=== PATIENT | female | born 1975 | race Caucasian/White ===

== ENCOUNTER 2018-10-29 06:34 | Emergency (ER) | payer BC ==
--- NOTE | 2018-10-29 07:33 | EDM.PDOC ---
ED HPI GENERAL MEDICAL PROBLEM - General Chief Complaint: Upper Extremity Injury/Pain Stated Complaint: RIGHT SHOULDER PAIN Time Seen by Provider: 10/29/18 07:10 Source of Information: Reports: Patient History Limitations: Reports: No Limitations - History of Present Illness INITIAL COMMENTS - FREE TEXT/NARRATIVE: 42-year-old female with chronic right shoulder pain since shoulder surgery months ago. She is being followed by orthopedics and Dr. Elder has been consult that in his rechecking her with her past medical records on the of this month. Her pain is persistent, not responding to anti-inflammatories and she's wondering if anything else can be done if she's having problems sleeping and unable to work. No fevers or chills. She is losing her ability to completely extend her right elbow, but does not complain of any paresthesias of the lower arm wrist or hand. 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 Musculoskeletal History: Reports: Arthritis, Back Pain, Chronic, Other (See Below) Other Musculoskeletal History: right hip Endocrine/Metabolic History: Reports: Obesity/BMI 30+ - Infectious Disease History Infectious Disease History: Reports: Chicken Pox - Past Surgical History Head Surgeries/Procedures: Reports: None HEENT Surgical History: Reports: None Endocrine Surgical History: Reports: None Musculoskeletal Surgical History: Reports: Shoulder Surgery Other Musculoskeletal Surgeries/Procedures:: Bone spur removal04/20/2018, has small tear Dermatological Surgical History: Reports: None Social & Family History - Family History Family Medical History: Noncontributory - Tobacco Use Smoking Status *Q: Current Every Day Smoker Years of Tobacco use: 10 Packs/Tins Daily: 0.5 Used Tobacco, but Quit: No - Caffeine Use Caffeine Use: Reports: Soda - Recreational Drug Use Recreational Drug Use: No Review of Systems - Review of Systems Review Of Systems: See Below Constitutional: Denies: Fever Respiratory: Reports: No Symptoms Cardiovascular: Reports: No Symptoms GI/Abdominal: Reports: No Symptoms Skin: Denies: Rash Neurological: Denies: Paresthesia ED EXAM, GENERAL - Physical Exam Exam: See Below Exam Limited By: No Limitations General Appearance: Alert, No Apparent Distress, Other (Fairly comfortable with her arm lying still) Respiratory/Chest: No Respiratory Distress Extremities: Other (She is tender over the before meals joint of the right shoulder. She is able to actively place her hand behind her head although it is uncomfortable. There is also pain with passive abduction.) Skin Exam: Warm, Dry Course - Vital Signs Last Recorded V/S: Last Vital Signs Temp 95.6 F 10/29/18 06:44 Pulse 88 10/29/18 06:44 Resp 16 10/29/18 06:44 BP 134/87 10/29/18 06:44 Pulse Ox 99 10/29/18 06:44 - Re-Assessments/Exams Free Text/Narrative Re-Assessment/Exam: 10/29/18 07:59 We discussed possible acute treatment such as steroid injection but I would rather have this done by orthopedics since her appointment is coming up so soon. I do not want to limit his ability to provide therapeutic care. I gave her a work note to be off until her orthopedic appointment, she'll stop the ibuprofen and we will try 1 dose of ketorolac every 8 hours for the next 5 days. I also gave her 20 hydrocodone for extra pain control. She'll intermittently sling her arm for comfort. Departure - Departure Time of Disposition: 07:50 Disposition: Home, Self-Care 01 Clinical Impression: Chronic right shoulder pain - Discharge Information Instructions: Shoulder Pain Referrals: Beth Asencio MD [Primary Care Provider] - Forms: ED Department Discharge Care Plan Goals: Sling on for comfort intermittently, use Toradol 3 times a day until gone and add hydrocodone as needed for extra pain control. Recheck with Dr. Elder as scheduled.
== END 2018-10-29 07:45 | disposition home or self-care (01) ==
LOC: JP.ED 06:34
DX: G89.29 Other chronic pain (principal); M25.511 Pain in right shoulder; E66.9 Obesity, unspecified; Z68.33 Body mass index [BMI] 33.0-33.9, adult; F17.210 Nicotine dependence, cigarettes, uncomplicated
CPT/HCPCS: 99283

== ENCOUNTER 2018-12-07 11:26 | Day surgery (SDC) | payer BC ==
[~2018-12-07 11:26] MED LIST: Bupivacaine 0.5% 30 ML SDV ONE; Dexamethasone 4 MG/ML SDV ONE; Glycopyrrolate 0.2 MG/ML 5 ML MDV ONE; Neostigmine Methylsulfate 1 MG/ML 5 ML Syringe ONE; Ondansetron 4 MG/2 ML SDV ONE; Propofol 200 MG/20 ML SDV ONE; Rocuronium 50 MG/5 ML Vial ONE; Succinylcholine 200 MG/10 ML MDV ONE; fentaNYL 250 MCG/5 ML SDV ONE
[2018-12-07] MEDS ORDERED: Bupivacaine 0.5% 50 ML MDV ONE (11:58)
[2018-12-07] MEDS ORDERED: Nozin Nasal Sanitizer NASBOTH ONE (12:00)
[2018-12-07] MEDS ORDERED: ceFAZolin 2 GM in Sodium Chloride 0.9% 50 ML IV ONE (12:00)
[2018-12-07] MEDS ORDERED: Lactated Ringers 1,000 ML IV SCH (12:30)
[2018-12-07] MEDS ORDERED: Lactated Ringers 1,000 ML ONE (13:46)
[2018-12-07] MEDS ORDERED: fentaNYL 100 MCG/2 ML SDV IVPUSH ONE (15:24)
[2018-12-07] MEDS ORDERED: Acetaminophen/oxyCODONE 325-5 MG Tab PO PRN (15:59)
--- NOTE | 2018-12-11 15:26 | OR ---
DATE OF PROCEDURE: 12/07/2018 SURGEON: Hakan Elder MD PREOPERATIVE DIAGNOSES: 1. Arthrofibrosis, right elbow, with flexion contracture. 2. Capsular contraction, right shoulder. 3. Impingement, right shoulder. POSTOPERATIVE DIAGNOSES: 1. Arthrofibrosis with capsular contraction, right elbow. 2. Impingement, right shoulder. 3. Mild capsular contraction, anterior aspect, right shoulder. PROCEDURE: 1. Arthroscopy, right elbow with release of anterior capsule and manipulation under anesthesia. 2. Arthroscopy, right shoulder with release of anterior capsule and subacromial decompression and modification of acromioplasty. ANESTHESIA: Interscalene block with sedation. INDICATIONS: Kassi is a 43-year-old female with a history of persistent right shoulder and elbow problems. She had undergone a previous arthroscopic procedure and during rehab had persistent pain, difficulty with the shoulder, and developed a flexion contracture of the elbow. She has made some improvements with the flexion contracture with therapy, but still lacks full extension and has persistent elbow pain. She also has persistent difficulty with range of motion of the right shoulder, painful clicking, and decreased strength with overhead activities. She now presents for arthroscopic capsular release and manipulation of the elbow, evaluation of the right shoulder with probable capsular release and manipulation, and evaluation of the rotator cuff of a previous partial-thickness tear. Risks, benefits, and potential complications of the procedure were discussed. DESCRIPTION OF PROCEDURE: After adequate anesthesia was obtained, the patient was placed in the lateral decubitus position and secured with a beanbag positioner. Right shoulder and arm were prepped and draped in a sterile fashion. The right arm was placed over an arm ruvalcaba in a flexed position. The capsule was injected with 15 mL of saline to distend the capsule. An anterior lateral portal was then established. The scope was introduced. An anterior medial portal was then established under direct visualization in the joint avoiding the ulnar nerve. No significant synovitis was present within the joint. Mild capsular contraction was noted. Articular surfaces of the distal humerus, trochlea, coronoid process, and radial head were intact. Using a radiofrequency ablation wand, working initially from the medial portal, the capsule was released from the surface of the humerus. This was taken over to the extent of visualization. A switching stick was then used to move the camera to the medial portal and release was continued laterally. No loose bodies or other abnormalities were identified. The scope was then withdrawn and the arm was brought out into extension. Very light pressure was needed to manipulate the joint into full extension and under anesthesia with moderate pressure, slight hyperextension could be obtained matching her other side. Decision was made not to proceed with arthroscopy of the posterior joint as no pathology was anticipated in this position. Port sites were then closed with 3-0 Monocryl and Steri-Strips were applied. Attention was then turned to the shoulder. Ten pounds of traction was placed through the shoulder in the traction unit. Using a previous incision, a posterior portal was established. Glenohumeral joint was inspected. This revealed some moderate capsulitis. The labrum was intact. No evidence of SLAP tear. Articular cartilage was intact in the glenoid and humerus. Biceps tendon showed no evidence of pathology within the joint. Anterior portal was established and the biceps was pulled down into the joint evaluating the portion of the biceps entering the bicipital groove, which was intact with no evidence of tendinopathy or tear. Subscapularis was intact with no evidence of significant pathology. The undersurface of the rotator cuff was evaluated. An area of mild irregularity and scarring was noted. The anterior edge of the supraspinous corresponding to area of a previous partial thickness tear noted. Some minor debridement was done with a shaver along this area further evaluating the cuff with no evidence of significant full-thickness or partial-thickness tear. Capsular attachment was evaluated. The radiofrequency ablation wand was used to release a portion of the anterior capsule and middle glenohumeral ligament. The scope was then withdrawn and placed into the subacromial space. Evidence of previous bursectomy and acromioplasty was present. A ridge of soft tissue was present on the undersurface of the acromion along the edge of the acromioplasty. The bursal side of the rotator cuff was fully evaluated and was intact with no evidence of significant tendinopathy or tear. Lateral portal was established. The rotator cuff was probed and no areas of significant tendinopathy or thinning were noted. Radiofrequency wand was used to debride the soft tissues on the undersurface of the acromion and a slight modification of the acromioplasty was performed with a bur removing just a couple of millimeters more anteriorly and laterally and bevelling this smooth posteriorly. Once this was complete, the camera was moved from the posterior portal to the lateral portal. The rotator cuff was inspected once again taking the arm through internal and external rotation and abduction with no evidence of tear. Level of the acromioplasty and decompression was adequate. There was no significant evidence of impingement at the AC joint. The scope was then withdrawn and the port sites were closed in a standard fashion. The arm was removed from the traction unit and taken through range of motion. External rotation could be obtained to 90 degrees with the arm adducted at the side. It could be taken through internal rotation behind the back to approximately L3 and overhead to 180 degrees. Sterile dressing was then placed on both the shoulder and the elbow. She tolerated procedure well and was taken from the operating room in a stable condition. Hakan Elder MD /[id number]
== END 2018-12-07 17:25 | disposition home or self-care (01) ==
LOC: JP.SDS 11:26
PROVIDERS: ATTEND Specialist
DX: M24.621 Ankylosis, right elbow (principal); M24.511 Contracture, right shoulder; M25.811 Other specified joint disorders, right shoulder
CPT/HCPCS: 29825; 29826; 29837; 36415; 80048; 85027; A9270; C1713; J0330; J0690; J1100; J2405; J2704; J2710; J3010; J3490; J7050; J7120

== ENCOUNTER 2020-09-28 07:07 | Emergency (ER) | payer BC ==
[2020-09-28] MEDS ORDERED: Sodium Chloride 0.9% 10 ML Syringe FLUSH PRN (07:27)
[2020-09-28] MEDS ORDERED: Ondansetron 4 MG/2 ML SDV IVPUSH ONE (07:27)
[2020-09-28] MEDS ORDERED: HYDROmorphone 1 MG/ML Syringe IVPUSH ONE (07:27)
--- NOTE | 2020-09-28 07:37 | EDM.PDOC ---
ED HPI GENERAL MEDICAL PROBLEM - General Chief Complaint: Abdominal Pain Stated Complaint: stomach pain Time Seen by Provider: 09/28/20 07:20 Source of Information: Reports: Patient, Old Records, RN History Limitations: Reports: No Limitations - History of Present Illness INITIAL COMMENTS - FREE TEXT/NARRATIVE: 44 yo female presents with generalized abdominal pain. Sx's began as nausea yesterday. About 0300h today she developed abdominal pain. There has not been a fever, vomiting, constipation, melena, diarrhea or dysuria. Nothing makes the pain better or worse. No pHx of pain like this. No hx of any abdominal surgeries. No self tx. Onset: Gradual Onset Date: 09/27/20 Duration: Hour(s):, Getting Worse Location: Reports: Abdomen, Generalized (generalized abdominal pain) Quality: Reports: Ache Severity: Severe Improves with: Reports: None Worsens with: Reports: Other (time) Context: Reports: Other (See HPI) Associated Symptoms: Reports: Nausea/Vomiting (no vomiting). 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 s/p R shoulder and R elbow scope 12/07/18 Neurological History: Reports: None Psychiatric History: Reports: None Endocrine/Metabolic History: Reports: Obesity/BMI 30+ Hematologic History: Reports: None Immunologic History: Reports: None Oncologic (Cancer) History: Reports: None Dermatologic History: Reports: None - Infectious Disease History Infectious Disease History: Reports: Chicken Pox, Influenza - Past Surgical History Head Surgeries/Procedures: Reports: None HEENT Surgical History: Reports: Naso-Sinus Surgery, Other (See Below) Female Surgical History: Reports: Hysterectomy, Oophorectomy Endocrine Surgical History: Reports: Thyroidectomy Musculoskeletal Surgical History: Reports: Shoulder Surgery Other Musculoskeletal Surgeries/Procedures:: Bone spur removal04/20/2018, has small tear Dermatological Surgical History: Reports: None Social & Family History - Family History Family Medical History: No Pertinent Family History Cardiac: Reports: CA Musculoskeletal: Reports: Arthritis Neurological: Reports: Alzheimers Disease Endocrine/Metabolic: Reports: Diabetes, Type I, Diabetes, type II - Tobacco Use Tobacco Use Status *Q: Current Every Day Tobacco User Years of Tobacco use: 20 Packs/Tins Daily: 0.5 - Caffeine Use Caffeine Use: Reports: Soda - Recreational Drug Use Recreational Drug Use: No ED ROS GENERAL - Review of Systems Review Of Systems: See Below Constitutional: Reports: No Symptoms HEENT: Reports: No Symptoms Respiratory: Reports: No Symptoms Cardiovascular: Reports: No Symptoms GI/Abdominal: Reports: Abdominal Pain, Nausea. Denies: Black Stool, Bloody Stool, Constipation, Diarrhea, Distension, Hematemesis, Hematochezia, Vomiting : Reports: No Symptoms Musculoskeletal: Reports: No Symptoms Skin: Reports: No Symptoms Psychiatric: Reports: No Symptoms ED EXAM, GI/ABD - Physical Exam Exam: See Below Exam Limited By: No Limitations General Appearance: Alert, WD/WN, Mild Distress Eyes: Bilateral: Normal Appearance Ears: Normal External Exam, Normal Canal, Hearing Grossly Normal. No: Hearing Loss Nose: Normal Inspection, No Blood Throat/Mouth: Normal Inspection, Normal Lips, Normal Oropharynx, Normal Voice, No Airway Compromise Head: Atraumatic, Normocephalic Neck: Normal Inspection Respiratory/Chest: No Respiratory Distress, Lungs Clear, Normal Breath Sounds, No Accessory Muscle Use Cardiovascular: Regular Rate, Rhythm, No Edema GI/Abdominal Exam: Normal Bowel Sounds, Soft, No Distention, Tender (mild RUQ). No: Non-Tender, Distended, Guarding, Rigid, Rebound Back Exam: Normal Inspection. No: CVA Tenderness (R), CVA Tenderness (L) Extremities: Normal Inspection, Normal Range of Motion, Non-Tender Neurological: Alert, Oriented, CN II-XII Intact, Normal Cognition, No Motor/ Sensory Deficits Psychiatric: Normal Affect, Normal Mood Skin Exam: Warm, Dry, Intact, Normal Color, No Rash Course - Vital Signs Last Recorded V/S: Last Vital Signs Temp 36.2 C 09/28/20 07:18 Pulse 95 09/28/20 08:51 Resp 16 09/28/20 08:51 BP 115/63 09/28/20 08:51 Pulse Ox 99 09/28/20 08:51 - Orders/Labs/Meds Orders: Active Orders 24 hr Category Date Time Status Abdomen Ltd [US] Stat Exams 09/28/20 09:43 Ordered CULTURE URINE [RM] Stat Lab 09/28/20 09:00 Received Sodium Chloride 0.9% [Normal Saline] 81 ml Med 09/28/20 09:00 Active IV ASDIRECTED Sodium Chloride 0.9% [Saline Flush] Med 09/28/20 07:27 Active 10 ml FLUSH ASDIRECTED PRN Saline Lock Insert [OM.PC] Routine Oth 09/28/20 07:27 Ordered Medication Orders Sodium Chloride (Normal Saline) 81 mls @ 3.5 mls/sec IV ASDIRECTED SANJEEV Last Admin: 09/28/20 09:00 Dose: 3.5 mls/sec Documented by: TODD Sodium Chloride (Sodium Chloride 0.9% 10 Ml Syringe) 10 ml FLUSH ASDIRECTED PRN PRN Reason: Keep Vein Open Last Admin: 09/28/20 07:44 Dose: 10 ml Documented by: PREILOR Labs: Laboratory Tests 09/28/20 09/28/20 09/28/20 Range/Units 07:31 07:43 07:57 WBC 17.4 H (4.5-11.0) K/uL RBC 5.23 (3.30-5.50) M/uL Hgb 15.1 H (12.0-15.0) g/dL Hct 45.2 (36.0-48.0) % MCV 86 (80-98) fL MCH 29 (27-31) pg MCHC 33 (32-36) % Plt Count 341 (150-400) K/uL Sodium 140 (140-148) mmol/L Potassium 3.8 (3.6-5.2) mmol/L Chloride 102 (100-108) mmol/L Carbon Dioxide 26 (21-32) mmol/L Anion Gap 12.0 (5.0-14.0) mmol/L BUN 8 (7-18) mg/dL Creatinine 0.9 (0.6-1.0) mg/dL Est Cr Clr Drug Dosing 70.33 mL/min Estimated GFR (MDRD) > 60 (>60) Glucose 144 H (74-106) mg/dL Calcium 8.4 L (8.5-10.1) mg/dL Total Bilirubin 0.2 (0.2-1.0) mg/dL AST 13 L (15-37) U/L ALT 23 (12-78) U/L Alkaline Phosphatase 90 (46-116) U/L C-Reactive Protein 0.50 H (0.0-0.3) mg/dL Total Protein 6.9 (6.4-8.2) g/dL Albumin 3.6 (3.4-5.0) g/dL Globulin 3.3 (2.3-3.5) g/dL Albumin/Globulin Ratio 1.1 L (1.2-2.2) Lipase 47 L (73-393) U/L Urine Color Yellow (YELLOW) Urine Appearance Slightly cloudy A (CLEAR) Urine pH 5.5 (5.0-8.0) Ur Specific [place] >= 1.030 (1.008-1.030) Urine Protein Negative (NEGATIVE) mg/dL Urine Glucose (UA) Negative (NEGATIVE) mg/dL Urine Ketones Negative (NEGATIVE) mg/dL Urine Occult Blood Negative (NEGATIVE) Urine Nitrite Negative (NEGATIVE) Urine Bilirubin Negative (NEGATIVE) Urine Urobilinogen 0.2 (0.2-1.0) EU/dL Ur Leukocyte Esterase Negative (NEGATIVE) Urine RBC Not seen (0-5) Urine WBC 5-10 H (0-5) Ur Epithelial Cells Moderate Amorphous Sediment Not seen Urine Bacteria Moderate Urine Mucus Moderate Meds: Medications Generic Name Dose Route Start Last Admin Trade Name Freara PRN Reason Stop Dose Admin Sodium Chloride 81 mls @ 3.5 mls/sec 09/28/20 09:00 09/28/20 09:00 Normal Saline IV 3.5 mls/sec ASDIRECTED SANJEEV Administration Sodium Chloride 10 ml 09/28/20 07:27 09/28/20 07:44 Sodium Chloride 0.9% 10 Ml Syringe FLUSH 10 ml ASDIRECTED PRN Administration Keep Vein Open Discontinued Medications Generic Name Dose Route Start Last Admin Trade Name Freq PRN Reason Stop Dose Admin Ciprofloxacin 500 mg 09/28/20 09:40 09/28/20 09:44 Ciprofloxacin 500 Mg Tab PO 09/28/20 09:41 500 mg ONETIME ONE Administration Hydromorphone HCl 1 mg 09/28/20 07:27 09/28/20 07:41 Hydromorphone 1 Mg/Ml Syringe IVPUSH 09/28/20 07:28 1 mg ONETIME ONE Administration Lactated Ringer's 1,000 mls @ 1,000 mls/hr 09/28/20 08:41 09/28/20 08:46 Ringers, Lactated IV 09/28/20 09:40 1,000 mls/hr BOLUS ONE Administration Iopamidol 135 ml 09/28/20 09:00 09/28/20 09:00 Iopamidol 612 Mg/Ml 150 Ml Bottle IV 135 ml . DIRECTED SANJEEV Administration Ketorolac Tromethamine 30 mg 09/28/20 09:39 09/28/20 09:45 Ketorolac 30 Mg/Ml Sdv IVPUSH 09/28/20 09:40 30 mg ONETIME ONE Administration Ondansetron HCl 4 mg 09/28/20 07:27 09/28/20 07:40 Ondansetron 4 Mg/2 Ml Sdv IVPUSH 09/28/20 07:28 4 mg ONETIME ONE Administration - Radiology Interpretation Free Text/Narrative:: CT abd/pelvis with IV [id number] kidney stone L lower pole of kidney GB ultrasound-neg CT Results Date: 09/28/20 CT Results Time: 09:41 Departure - Departure Time of Disposition: 11:00 Disposition: Home, Self-Care 01 Condition: Fair Clinical Impression: Kidney stone UTI (urinary tract infection) Qualifiers: Urinary tract infection type: acute cystitis Hematuria presence: without hematuria Qualified Code(s): N30.00 - Acute cystitis without hematuria - Discharge Information *PRESCRIPTION DRUG MONITORING PROGRAM REVIEWED*: Not Applicable *COPY OF PRESCRIPTION DRUG MONITORING REPORT IN PATIENT ARELIS: Not Applicable Instructions: Kidney Stones, [id number], Nausea and Vomiting, Adult, Ea sy-to-Read, Urinary Tract Infection, Adult, [id number] Referrals: Joseph Garrett [employer]ION[employer] GEODETIC ADVISOR [Primary Care Provider] - Forms: ED Department Discharge Additional Instructions: Take Zofran as needed for nausea control. Take Ciprofloxacin for infection. Drink ample fluids. Take acetaminophen and/or ibuprofen for pain relief. Recheck in the clinic in 2 days-call for an appt. Return if worse. Sepsis Event Note (ED) - Focused Exam Vital Signs: Vital Signs Temp Pulse Resp BP Pulse Ox 09/28/20 08:51 95 16 115/63 99 09/28/20 07:18 36.2 C 94 18 116/61 98 - My Orders Last 24 Hours: My Active Orders 09/28/20 07:27 Sodium Chloride 0.9% [Saline Flush] 10 ml FLUSH ASDIRECTED PRN Saline Lock Insert [OM.PC] Routine 09/28/20 09:00 CULTURE URINE [RM] Stat Sodium Chloride 0.9% [Normal Saline] 81 ml IV ASDIRECTED 09/28/20 09:43 Abdomen Ltd [US] Stat - Assessment/Plan Last 24 Hours: My Active Orders 09/28/20 07:27 Sodium Chloride 0.9% [Saline Flush] 10 ml FLUSH ASDIRECTED PRN Saline Lock Insert [OM.PC] Routine 09/28/20 09:00 CULTURE URINE [RM] Stat Sodium Chloride 0.9% [Normal Saline] 81 ml IV ASDIRECTED 09/28/20 09:43 Abdomen Ltd [US] Stat
[2020-09-28] MEDS ORDERED: Lactated Ringers 1,000 ML IV ONE (08:41)
[2020-09-28] MEDS ORDERED: Iopamidol 612 MG/ML 150 ML Bottle IV SCH (09:00)
--- NOTE | 2020-09-28 09:26 | CT ---
Abdomen Pelvis w Cont CLINICAL HISTORY: Abdominal pain COMPARISON: None. TECHNIQUE: Transverse scans were obtained from the base of the lungs to the pubic symphysis following oral contrast and IV infusion of contrast.Auto dosage reduction and iterative reconstructiontechniques employed. FINDINGS: The lung bases show patchy density in the left lower lobe. This may be chronic. Superimposed infiltrate is not excluded. The liver shows no mass or biliary dilatation. The gallbladder has a normal contour. The spleen has a normal size and shape. The pancreas shows no mass or inflammatory change. The adrenal glands appear normal bilaterally . The kidneys show no mass or hydronephrosis. There is some scarring in the right upper pole. There is a 7 x 11 mm nonobstructing lower pole calculus on the left. The ureters have a normal course and caliber. The bladder is empty. There has been previous hysterectomy. There is a 3.1 x 1.9 x 2.9 cm cystic focus in the left adnexal region.. The aorta is some minimal atheromatous plaque without aneurysm. There are a few scattered small lymph nodes in the periaortic region. These are nonspecific. The appendix is not definitively identified. The small intestinal configuration is nonacute. IMPRESSION: Nonobstructing left lower pole renal calculus 3.1 x 1.9 x 2.9 cm cyst in the left adnexal region
[2020-09-28] MEDS ORDERED: Ketorolac 30 MG/ML SDV IVPUSH ONE (09:39)
[2020-09-28] MEDS ORDERED: Ciprofloxacin 500 MG Tab PO ONE (09:40)
--- NOTE | 2020-09-28 11:29 | US ---
Abdomen Ltd CLINICAL HISTORY: Right upper quadrant pain COMPARISON: CT abdomen 09/28/2020. TECHNIQUE: Real-time images were obtained through the right upper quadrant. FINDINGS: The liver is free of mass or biliary dilatation. It is borderline enlarged at 17 cm in length There is homogeneous echotexture. The gallbladder has a normal appearance. The common bile duct measures 4 mm. The pancreas is within normal limits. The right kidney shows some mild cortical irregularity which is likely related to some prior scarring. The IVC is normal. IMPRESSION: Borderline hepatomegaly No mass or biliary dilatation
== END 2020-09-28 11:25 | disposition home or self-care (01) ==
LOC: JP.ED 07:07
DX: N20.0 Calculus of kidney (principal); N30.00 Acute cystitis without hematuria; E66.9 Obesity, unspecified; Z72.0 Tobacco use; Z68.33 Body mass index [BMI] 33.0-33.9, adult
CPT/HCPCS: 36415; 74177; 76705; 80053; 81001; 83690; 85027; 86140; 87086; 96374; 96375; 99284; A9270; J1170; J1885; J2405; J7120; Q9967

== ENCOUNTER 2021-01-17 01:12 | Emergency (ER) | payer BC ==
[2021-01-17] MEDS ORDERED: Sodium Chloride 0.9% 10 ML Syringe FLUSH PRN (01:58)
[2021-01-17] MEDS ORDERED: Ketorolac 30 MG/ML SDV IVPUSH ONE (02:15)
[2021-01-17] MEDS ORDERED: Sodium Chloride 0.9% 1,000 ML IV ONE (02:15)
[2021-01-17] MEDS ORDERED: Morphine 4 MG/ML Syringe IVPUSH ONE ×2 (02:15→04:04)
[2021-01-17] MEDS ORDERED: Ondansetron 4 MG/2 ML SDV IVPUSH ONE (02:15)
--- NOTE | 2021-01-17 03:30 | CRLCT ---
For Patients: As a result of the Century Cures Act, medical imaging exams and procedure reports are released immediately into your electronic medical record. You may view this report before your referring provider. If you have questions, please contact your health care provider. INDICATION: Left flank pain. History of kidney stones. TECHNIQUE: CT abdomen and pelvis without contrast. COMPARISON: September 28, 2020. FINDINGS: Lower chest: Unremarkable. Liver: Normal in size and attenuation. No suspicious masses. Gallbladder and bile ducts: No stones or inflammation. No biliary dilatation. Pancreas: Unremarkable. No mass or inflammation. Spleen: Normal in size. No masses. Adrenal glands: Normal in size. No nodules. Kidneys: Large 10 mm stone in the mid left ureter causing moderate to severe hydronephrosis. A 2nd tiny stone remains in the left kidney. No right-sided stones. GI tract: Unremarkable. Normal in caliber. No sign of mass or inflammation. Normal appendix. Vasculature: Unremarkable. Lymph nodes: No lymphadenopathy. Abdominal wall/Omentum/Peritoneum: Unremarkable. No sign of mass or infiltration. No free air or significant free fluid. Pelvis: Stable small left ovarian cyst. Otherwise unremarkable pelvic structures. Bones: Unremarkable for age. IMPRESSION: 10 mm stone in the mid left ureter causing moderate to severe hydronephrosis. Please note that all CT scans at this facility use dose modulation, iterative reconstruction, and/or weight-based dosing when appropriate to reduce radiation dose to as low as reasonably achievable. Dictated by Aguilar Viramontes MD @ 01/19/2021 10:21:34 AM (Electronically Signed)
--- NOTE | 2021-01-17 04:00 | EDM.PDOC ---
ED HPI GENERAL MEDICAL PROBLEM - General Chief Complaint: Flank Pain Stated Complaint: LEFT ABD PAIN Time Seen by Provider: 01/17/21 01:57 Source of Information: Reports: Patient History Limitations: Reports: No Limitations - History of Present Illness INITIAL COMMENTS - FREE TEXT/NARRATIVE: Patient presents to the emergency room today secondary to left-sided back flank pain that goes into the pelvic area. Patient states that pain started around 8 PM last night increasing in nature with nausea no urinary tract symptoms patient does have a history of nephrolithiasis last episode was a couple months ago. Patient has not seen urology in this local area. She says she does have a distant history of seen urology when she lived in [place] and having both lithotripsy completed as well as stent and basket retrieval done for a left- sided kidney stones. She is noted to be uncomfortable, pain 10/10, moving about in room/sitting up on side of bed due to pain/discomfort. she took ibuprofen around 2029 last night for pain PMH--recurrent nephrolithiasis Meds--denies NKDA Tob--/ ppd EtOH--rare Drugs--denies + COVID infection history (25 Dec 2020), she has not received her COVID immunization Onset: Sudden Onset Date: 01/16/21 Onset Time: 20:00 right lower back pain Pain Score (Numeric/FACES): 10 - Related Data Allergies Allergy/AdvReac Type Severity Reaction Status Date / Time No Known Allergies Allergy Verified 01/17/21 01:48 Home Meds: Home Meds NK [No Known Home Meds] 01/17/21 [History] Past Medical History HEENT History: Reports: Impaired Vision Other HEENT History: wears glasses Cardiovascular History: Reports: None Respiratory History: Reports: None Gastrointestinal History: Reports: None Genitourinary History: Reports: Pyelonephritis, Renal Calculus, UTI, Recurrent ANALYTICAL STATISTICIAN History: Reports: Other ANALYTICAL STATISTICIAN History: paricial hyst 1999 Musculoskeletal History: Reports: Arthritis, Back Pain, Chronic, Other (See Below) Other Musculoskeletal History: right hip. s/p R shoulder and R elbow scope 12/07/18 Neurological History: Reports: None Psychiatric History: Reports: None Endocrine/Metabolic History: Reports: Obesity/BMI 30+ Hematologic History: Reports: None Immunologic History: Reports: None Oncologic (Cancer) History: Reports: None Dermatologic History: Reports: None - Infectious Disease History Infectious Disease History: Reports: Chicken Pox, Influenza - Past Surgical History Head Surgeries/Procedures: Reports: None HEENT Surgical History: Reports: Naso-Sinus Surgery, Other (See Below) Female Surgical History: Reports: Hysterectomy, Oophorectomy Endocrine Surgical History: Reports: Thyroidectomy Musculoskeletal Surgical History: Reports: Shoulder Surgery Other Musculoskeletal Surgeries/Procedures:: Bone spur removal04/20/2018, has small tear Social & Family History - Family History Family Medical History: No Pertinent Family History Cardiac: Reports: ND Musculoskeletal: Reports: Arthritis Neurological: Reports: Alzheimers Disease Endocrine/Metabolic: Reports: Diabetes, Type I, Diabetes, type II - Tobacco Use Tobacco Use Status *Q: Current Every Day Tobacco User Years of Tobacco use: 20 Packs/Tins Daily: 0.2 - Caffeine Use Caffeine Use: Reports: Coffee, Soda - Recreational Drug Use Recreational Drug Use: No ED ROS GENERAL - Review of Systems Review Of Systems: Comprehensive ROS is negative, except as noted in HPI. Constitutional: Reports: No Symptoms GI/Abdominal: Reports: Nausea : Reports: Flank Pain (left back/flank into pelvis, similar in nature to previous kidney stones) ED EXAM, RENAL/ - Physical Exam Exam: See Below Exam Limited By: No Limitations General Appearance: Alert, WD/WN, Moderate Distress (secondary to left side back/flank pain) Eye Exam: Bilateral Eye: EOMI, Normal Inspection, PERRL Ears: Normal External Exam, Hearing Grossly Normal Nose: Normal Inspection Throat/Mouth: Normal Inspection, Normal Oropharynx, Normal Voice, No Airway Compromise Head: Atraumatic, Normocephalic Neck: Normal Inspection, Supple, Non-Tender, Full Range of Motion Respiratory/Chest: No Respiratory Distress, Lungs Clear, Normal Breath Sounds Cardiovascular: Normal Peripheral Pulses, Regular Rate, Rhythm, No Edema, No Murmur GI/Abdominal: Normal Bowel Sounds, Soft, Tender (left flank, + left CVA tenderness). No: Guarding, Rigid, Rebound (Female) Exam: Deferred Rectal (Female) Exam: Deferred Back Exam: Normal Inspection, Full Range of Motion, CVA Tenderness (L) Extremities: Normal Inspection, Normal Range of Motion, No Pedal Edema, Normal Capillary Refill Neurological: Alert, Oriented, Normal Cognition, Normal Gait, No Motor/Sensory Deficits Psychiatric: Normal Affect, Normal Mood Skin Exam: Warm, Dry, Intact, Normal Color Course - Vital Signs Text/Narrative:: 0215--discussed with patient and spouse options of care to include labs and presumptive treatment given history of nephrolithiasis versus labs and CT scan for further evaluation of nephrolithiasis. They have decided that they would like to have a CT scan completed. I did discuss with them labs to include urinalysis as well as pain medications and medication for nausea 0345--CT abdomen pelvis noncontrast is returned noted for 2 mm stone in the left ureter with moderate left hydronephrosis and moderate left hydroureter. See full report for details 0400--in room to discuss with patient and spouse today's ER findings to include a 10 mm stone in the left ureter that is causing mild to moderate left hydronephrosis and moderate left hydroureter. Patient is somewhat more comfortable she rates pain now is 8 out of 10 she is laying in bed and resting more comfortably no longer moving about trying to find a position of comfort she has also been observed walking to the bathroom without any difficulty. I did discuss with her that I would need to contact [place] for further urology consultation as we do not have a urologist present at this facility 0410--call placed to Dr Beach, Urology at [facility]. case was discussed and at this time if no fever, pain controlled can follow up as an outpatient in 1-3 weeks--return to ER precautions. recommend antibiotic prophalaxis if +leuk estrace or infectious concern noted on UA (pending at this time). Patient updated on this plan of care, will need to have [facility] place Urology referral as we do not have the ability in the ER to place referral to [facility] specialist. verbalized understanding/agreement with plan of care at this time 0455--urinalysis has been reviewed it is noted for red blood cells positive protein but no acute infection is noted. This time prophylactic antibiotics are not indicated as per urology recommendation. Patient is ready for discharge Laboratory Tests 01/17/21 01/17/21 01/17/21 02:07 02:07 04:22 WBC 13.4 H Hgb 15.4 H Neut % (Auto) 66.9 H Sodium 137 L Glucose 112 H Urine Appearance Cloudy A Urine Protein 30 H Urine Occult Blood Large H Urine Nitrite Negative Ur Leukocyte Esterase Negative Urine RBC 75-100 H Urine WBC 0-5 Urine Bacteria Many Last Recorded V/S: Last Vital Signs Temp 97.7 F 01/17/21 01:56 Pulse 90 01/17/21 01:56 Resp 18 01/17/21 01:56 BP 146/85 H 01/17/21 01:56 Pulse Ox 96 01/17/21 01:56 - Orders/Labs/Meds Orders: Active Orders 24 hr Category Date Time Status CULTURE URINE [RM] Stat Lab 01/17/21 04:53 Ordered Acetaminophen/oxyCODONE [Percocet 325-10 MG] Med 01/17/21 04:22 Active 1 tab PO ONETIME PRN Sodium Chloride 0.9% [Saline Flush] Med 01/17/21 01:58 Active 10 ml FLUSH ASDIRECTED PRN Saline Lock Insert [OM.PC] Routine Oth 01/17/21 01:58 Ordered Medication Orders Oxycodone/Acetaminophen (Acetaminophen/Oxycodone 325-10 Mg Tab) 1 tab PO ONETIME PRN PRN Reason: Pain Last Admin: 01/17/21 04:40 Dose: 1 tab Documented by: LEO Sodium Chloride (Sodium Chloride 0.9% 10 Ml Syringe) 10 ml FLUSH ASDIRECTED PRN PRN Reason: Keep Vein Open Last Admin: 01/17/21 03:10 Dose: 10 ml Documented by: LEO Labs: Laboratory Tests 01/17/21 01/17/21 01/17/21 Range/Units 02:07 02:07 04:22 WBC 13.4 H (4.5-11.0) K/uL RBC 5.34 (3.30-5.50) M/uL Hgb 15.4 H (12.0-15.0) g/dL Hct 45.5 (36.0-48.0) % MCV 85 (80-98) fL MCH 29 (27-31) pg MCHC 34 (32-36) % Plt Count 388 (150-400) K/uL Neut % (Auto) 66.9 H (36-66) % Lymph % (Auto) 23.7 L (24-44) % [place] % (Auto) 7.6 H (2-6) % Eos % (Auto) 1.3 L (2-4) % Baso % (Auto) 0.5 (0-1) % Sodium 137 L (140-148) mmol/L Potassium 3.9 (3.6-5.2) mmol/L Chloride 103 (100-108) mmol/L Carbon Dioxide 25 (21-32) mmol/L Anion Gap 12.9 (5.0-14.0) mmol/L BUN 10 (7-18) mg/dL Creatinine 0.8 (0.6-1.0) mg/dL Est Cr Clr Drug Dosing 79.91 mL/min Estimated GFR (MDRD) > 60 (>60) Glucose 112 H (74-106) mg/dL Calcium 9.2 (8.5-10.1) mg/dL Total Bilirubin 0.2 (0.2-1.0) mg/dL AST 7 L (15-37) U/L ALT 20 (12-78) U/L Alkaline Phosphatase 89 (46-116) U/L Total Protein 7.1 (6.4-8.2) g/dL Albumin 3.6 (3.4-5.0) g/dL Globulin 3.5 (2.3-3.5) g/dL Albumin/Globulin Ratio 1.0 L (1.2-2.2) Urine Color Yellow (YELLOW) Urine Appearance Cloudy A (CLEAR) Urine pH 5.5 (5.0-8.0) Ur Specific [place] >= 1.030 (1.008-1.030) Urine Protein 30 H (NEGATIVE) mg/dL Urine Glucose (UA) Negative (NEGATIVE) mg/dL Urine Ketones Negative (NEGATIVE) mg/dL Urine Occult Blood Large H (NEGATIVE) Urine Nitrite Negative (NEGATIVE) Urine Bilirubin Negative (NEGATIVE) Urine Urobilinogen 0.2 (0.2-1.0) EU/dL Ur Leukocyte Esterase Negative (NEGATIVE) Urine RBC 75-100 H (0-5) Urine WBC 0-5 (0-5) Ur Epithelial Cells Rare Amorphous Sediment Not seen Urine Bacteria Many Urine Mucus Rare Urine HCG, Qual 01/17/21 Range/Units 04:22 WBC (4.5-11.0) K/uL RBC (3.30-5.50) M/uL Hgb (12.0-15.0) g/dL Hct (36.0-48.0) % MCV (80-98) fL MCH (27-31) pg MCHC (32-36) % Plt Count (150-400) K/uL Neut % (Auto) (36-66) % Lymph % (Auto) (24-44) % [place] % (Auto) (2-6) % Eos % (Auto) (2-4) % Baso % (Auto) (0-1) % Sodium (140-148) mmol/L Potassium (3.6-5.2) mmol/L Chloride (100-108) mmol/L Carbon Dioxide (21-32) mmol/L Anion Gap (5.0-14.0) mmol/L BUN (7-18) mg/dL Creatinine (0.6-1.0) mg/dL Est Cr Clr Drug Dosing mL/min Estimated GFR (MDRD) (>60) Glucose (74-106) mg/dL Calcium (8.5-10.1) mg/dL Total Bilirubin (0.2-1.0) mg/dL AST (15-37) U/L ALT (12-78) U/L Alkaline Phosphatase (46-116) U/L Total Protein (6.4-8.2) g/dL Albumin (3.4-5.0) g/dL Globulin (2.3-3.5) g/dL Albumin/Globulin Ratio (1.2-2.2) Urine Color (YELLOW) Urine Appearance (CLEAR) Urine pH (5.0-8.0) Ur Specific [place] (1.008-1.030) Urine Protein (NEGATIVE) mg/dL Urine Glucose (UA) (NEGATIVE) mg/dL Urine Ketones (NEGATIVE) mg/dL Urine Occult Blood (NEGATIVE) Urine Nitrite (NEGATIVE) Urine Bilirubin (NEGATIVE) Urine Urobilinogen (0.2-1.0) EU/dL Ur Leukocyte Esterase (NEGATIVE) Urine RBC (0-5) Urine WBC (0-5) Ur Epithelial Cells Amorphous Sediment Urine Bacteria Urine Mucus Urine HCG, Qual Negative Meds: Medications Generic Name Dose Route Start Last Admin Trade Name Freq PRN Reason Stop Dose Admin Oxycodone/Acetaminophen 1 tab 01/17/21 04:22 01/17/21 04:40 Acetaminophen/Oxycodone 325-10 Mg Tab PO 1 tab ONETIME PRN Administration Pain Sodium Chloride 10 ml 01/17/21 01:58 01/17/21 03:10 Sodium Chloride 0.9% 10 Ml Syringe FLUSH 10 ml ASDIRECTED PRN Administration Keep Vein Open Discontinued Medications Generic Name Dose Route Start Last Admin Trade Name Dmitry PRN Reason Stop Dose Admin Sodium Chloride 1,000 mls @ 500 mls/hr 01/17/21 02:15 01/17/21 03:06 Normal Saline IV 01/17/21 04:14 500 mls/hr .BOLUS ONE Administration Ketorolac Tromethamine 30 mg 01/17/21 02:15 01/17/21 03:11 Ketorolac 30 Mg/Ml Sdv IVPUSH 01/17/21 02:16 30 mg ONETIME ONE Administration Morphine Sulfate 4 mg 01/17/21 02:15 01/17/21 03:14 Morphine 4 Mg/Ml Syringe IVPUSH 01/17/21 02:16 4 mg ONETIME ONE Administration Morphine Sulfate 4 mg 01/17/21 04:04 01/17/21 04:27 Morphine 4 Mg/Ml Syringe IVPUSH 01/17/21 04:05 Not Given ONETIME ONE Ondansetron HCl 4 mg 01/17/21 02:15 01/17/21 03:08 Ondansetron 4 Mg/2 Ml Sdv IVPUSH 01/17/21 02:16 4 mg ONETIME ONE Administration Departure - Departure Time of Disposition: 04:55 Disposition: Home, Self-Care 01 Clinical Impression: Left nephrolithiasis, Hydronephrosis of left kidney, Hydroureter on left, Recurrent nephrolithiasis - Discharge Information *PRESCRIPTION DRUG MONITORING PROGRAM REVIEWED*: Yes *COPY OF PRESCRIPTION DRUG MONITORING REPORT IN PATIENT ARELIS: Yes Instructions: Low-Purine Eating Plan, Kidney Stones, [id number], Dietary Guidelines to Help Prevent Kidney Stones Referrals: Joseph Garrett NP [Primary Care Provider] - Forms: ED Department Discharge Additional Instructions: As discussed it is recommended that you follow-up with your primary care provider today at [facility] for further referral and coordination of care with urology at [facility]. Should you have any worsening symptoms of concern to include fevers chills nausea uncontrolled by medication pain uncontrolled by home medication it is recommended that you follow-up or return to the ER for further evaluation. Ensure that you are drinking plenty of fluids to stay well-hydrated to include water or juice sports drinks of choice not as concerned about your appetite as this will likely be decreased since you are not feeling well will return to normal when you are feeling better and have been able to have this kidney stone addressed Sepsis Event Note (ED) - Evaluation Sepsis Screening Result: No Definite Risk - Focused Exam Vital Signs: Vital Signs Temp Pulse Resp BP Pulse Ox 01/17/21 01:56 97.7 F 90 18 146/85 H 96 01/17/21 01:54 97.7 F 90 18 146/85 H 96 - My Orders Last 24 Hours: My Active Orders 01/17/21 01:58 Sodium Chloride 0.9% [Saline Flush] 10 ml FLUSH ASDIRECTED PRN Saline Lock Insert [OM.PC] Routine 01/17/21 04:22 Acetaminophen/oxyCODONE [Percocet 325-10 MG] 1 tab PO ONETIME PRN 01/17/21 04:53 CULTURE URINE [RM] Stat - Assessment/Plan Last 24 Hours: My Active Orders 01/17/21 01:58 Sodium Chloride 0.9% [Saline Flush] 10 ml FLUSH ASDIRECTED PRN Saline Lock Insert [OM.PC] Routine 01/17/21 04:22 Acetaminophen/oxyCODONE [Percocet 325-10 MG] 1 tab PO ONETIME PRN 01/17/21 04:53 CULTURE URINE [RM] Stat
[2021-01-17] MEDS ORDERED: Acetaminophen/oxyCODONE 325-10 MG Tab PO PRN (04:22)
== END 2021-01-17 05:12 | disposition home or self-care (01) ==
LOC: JP.ED 01:12
DX: N13.2 Hydronephrosis with renal and ureteral calculous obstruction (principal); E66.9 Obesity, unspecified; Z68.33 Body mass index [BMI] 33.0-33.9, adult; Z72.0 Tobacco use; Z86.16 Personal history of COVID-19
CPT/HCPCS: 36415; 74176; 80053; 81001; 81025; 85025; 87086; 96374; 96375; 99284; A9270; J1885; J2270; J2405; J7030

== ENCOUNTER 2021-09-18 04:56 | Emergency (ER) | payer OTHER ==
[2021-09-18] MEDS ORDERED: Sodium Chloride 0.9% 10 ML Syringe FLUSH PRN (05:23)
[2021-09-18] MEDS ORDERED: Ondansetron 4 MG/2 ML SDV IVPUSH ONE (05:25)
[2021-09-18] MEDS ORDERED: HYDROmorphone 0.5 MG/0.5 ML Syringe IVPUSH ONE (05:25)
[2021-09-18] MEDS ORDERED: Iopamidol 612 MG/ML 100 ML Bottle IV STA (05:47)
[2021-09-18] MEDS ORDERED: Sodium Chloride 0.9% 50 ML IV STA (05:48)
[2021-09-18 05:55] LABS: ESTIMATED GFR 93 mL/min (>60)
== END 2021-09-18 08:37 | disposition home or self-care (01) ==
LOC: JP.ED 04:56
DX: A08.4 Viral intestinal infection, unspecified (principal); E66.9 Obesity, unspecified; Z68.33 Body mass index [BMI] 33.0-33.9, adult; Z90.710 Acquired absence of both cervix and uterus; Z20.822 Contact with and (suspected) exposure to COVID-19
CPT/HCPCS: 36415; 74177; 80053; 83690; 85025; 86140; 96374; 96375; 99284-25; J1170; J2405; J3490; Q9967; U0002

== ENCOUNTER 2021-09-18 17:59 | Observation (INO) | payer OTHER ==
[2021-09-18] MEDS ORDERED: HYDROmorphone 0.5 MG/0.5 ML Syringe IVPUSH ONE ×2 (18:28→21:16)
[2021-09-18] MEDS ORDERED: Sodium Chloride 0.9% 10 ML Syringe FLUSH PRN (18:28)
[2021-09-18] MEDS ORDERED: Ondansetron 4 MG/2 ML SDV IVPUSH ONE (18:28)
[2021-09-18] MEDS ORDERED: Sodium Chloride 0.9% 1,000 ML IV SCH (18:30)
[2021-09-18 18:49] LABS: ESTIMATED GFR 93 mL/min (>60)
[2021-09-18] MEDS ORDERED: Sodium Chloride 0.9% 75 ML IV SCH (19:00)
[2021-09-18] MEDS ORDERED: Iopamidol 612 MG/ML 100 ML Bottle IV SCH (19:00)
[2021-09-18] MEDS: Piperacillin/Tazobactam 3.375 GM in Sodium Chloride 0.9% 50 ML IV SCH (20:47)
[2021-09-18] MEDS ORDERED: Neostigmine Methylsulfate 1 MG/ML 5 ML Syringe ONE (21:15)
[2021-09-18] MEDS ORDERED: Ondansetron 4 MG/2 ML SDV ONE (21:15)
[2021-09-18] MEDS ORDERED: Dexamethasone 4 MG/ML SDV ONE (21:15)
[2021-09-18] MEDS ORDERED: Glycopyrrolate 0.2 MG/ML 5 ML MDV ONE (21:15)
[2021-09-18] MEDS ORDERED: Propofol 200 MG/20 ML SDV ONE (21:15)
[2021-09-18] MEDS ORDERED: Succinylcholine 200 MG/10 ML MDV ONE (21:15)
[2021-09-18] MEDS ORDERED: Rocuronium 50 MG/5 ML Vial ONE (21:15)
[2021-09-18] MEDS ORDERED: fentaNYL 250 MCG/5 ML SDV ONE (21:15)
[2021-09-18] MEDS ORDERED: Hydrogen Peroxide 3% Top Soln 240 ML Bottle ONE (21:23)
[2021-09-18] MEDS ORDERED: Bupivacaine 0.5%/EPINEPHrine 1:200,000 50 ML MDV ONE (21:23)
[2021-09-18] MEDS ORDERED: fentaNYL 100 MCG/2 ML SDV ONE (22:45)
[2021-09-18] MEDS ORDERED: HYDROmorphone 1 MG/ML Syringe IVPUSH PRN (23:21)
[2021-09-18] MEDS ORDERED: Lactated Ringers 1,000 ML IV SCH (23:21)
[2021-09-18] MEDS ORDERED: diphenhydrAMINE 50 MG/ML SDV IVPUSH PRN (23:21)
[2021-09-18] MEDS ORDERED: Ondansetron 4 MG/2 ML SDV IVPUSH PRN (23:21)
[2021-09-18] MEDS ORDERED: Ketorolac 30 MG/ML SDV IVPUSH PRN (23:21)
[2021-09-18] MEDS ORDERED: Zolpidem 5 MG Tab PO PRN (23:21)
[2021-09-19] MEDS: Piperacillin/Tazobactam 3.375 GM in Sodium Chloride 0.9% 50 ML IV SCH (02:51)
[2021-09-19] MEDS: Acetaminophen/oxyCODONE 325-5 MG Tab PO PRN ×2 (03:46→09:27)
[2021-09-19] MEDS: Simethicone 125 MG Tab.Chew PO SCH ×2 (06:24)
[2021-09-19] MEDS ORDERED: Piperacillin/Tazobactam/Dext 3.375 GM in Premix Bag 1 BAG IV SCH (08:30)
[2021-09-19] MEDS ORDERED: Docusate Sodium 100 MG Cap PO SCH (09:00)
[2021-09-19] MEDS ORDERED: Enoxaparin 40 MG/0.4 ML Syringe SUBCUT SCH (09:00)
[2021-09-19] MEDS ORDERED: Famotidine 20 MG Tab PO SCH (09:00)
[2021-09-19] MEDS ORDERED: Simethicone 125 MG Tab.Chew PO SCH (10:00)
== END 2021-09-19 12:30 | disposition home or self-care (01) ==
LOC: JP.ED 17:59 → JP.SDS 20:58 → JP.MS 21:30
PROVIDERS: ADMIT Surgery; ATTEND Surgery
DX: K35.30 Acute appendicitis with localized peritonitis, without perforation or gangrene (principal); F17.210 Nicotine dependence, cigarettes, uncomplicated; E66.9 Obesity, unspecified; Z98.890 Other specified postprocedural states; Z79.899 Other long term (current) drug therapy; Z86.16 Personal history of COVID-19; Z68.33 Body mass index [BMI] 33.0-33.9, adult
CPT/HCPCS: 36415; 44970; 74177; 80053; 83690; 85025; 86140; 87070; 87075; 87205; 87635; 96361; 96365; 96375; 96376; 99284; 99285; A9270; G0378; J0330; J1100; J1170; J1650; J1790; J1885; J2405; J2543; J2704; J2710; J3010; J3490; J7030; J7120; Q9967; U0002

== ENCOUNTER 2022-12-02 07:06 | Day surgery (SDC) | payer MEDICAID ==
[2022-12-02 07:26] LABS: HEMATOCRIT 46.9 % (34.3-46.0); HEMOGLOBIN 15.7 g/dL (11.2-15.5); MEAN CORPUSCULAR HEMOGLOBIN 29.1 pg (31.6-35.5); MEAN CORPUSCULAR HGB CONC 33.5 g/dL (31.6-35.5); MEAN CORPUSCULAR VOLUME 86.9 fL (81.4-99.0); RED BLOOD CELL COUNT 5.4 M/uL (3.77-5.24); WHITE BLOOD CELL COUNT,WBC 9.7 K/uL (3.2-11.0)
[2022-12-02] MEDS ORDERED: Scopolamine 1.5 MG Transdermal Patch TOP ONE (07:26)
[2022-12-02] MEDS ORDERED: Bupivacaine 0.5% 50 ML MDV ONE (07:38)
[2022-12-02] MEDS ORDERED: Nozin Nasal Sanitizer NASBOTH ONE (07:45)
[2022-12-02] MEDS ORDERED: Lactated Ringers 1,000 ML IV SCH (07:45)
[2022-12-02 07:47] LABS: ALANINE AMINOTRANSFERASE,ALT 23 U/L (12-78); ALBUMIN 3.7 g/dL (3.4-5.0); ALKALINE PHOSPHATASE 107 U/L (46-116); ASPARTATE AMNIOTRANSFERASE,AST 20 U/L (15-37); BILIRUBIN TOTAL 0.3 mg/dL (0.2-1.0); BLOOD UREA NITROGEN,BUN 8 mg/dL (7-18); CALCIUM 8.8 mg/dL (8.5-10.1); CARBON DIOXIDE,CO2 30 mmol/L (21-32); CHLORIDE,CL 103 mmol/L (100-108); CREATININE 0.9 mg/dL (0.6-1.0); EST CRCL DRUG DOSING (CG) 66.73 mL/min; ESTIMATED GFR 79 mL/min (>60); GLUCOSE RANDOM 96 mg/dL (74-106); POTASSIUM,K 3.8 mmol/L (3.6-5.2); PROTEIN TOTAL,TP 7.4 g/dL (6.4-8.2); SODIUM,NA 138 mmol/L (140-148)
[2022-12-02 07:48] LABS: ANION GAP 8.8 mmol/L (5.0-14.0)
[2022-12-02] MEDS ORDERED: ceFAZolin 1 GM in Sodium Chloride 0.9% 50 ML IV ONE (08:15)
[2022-12-02] MEDS ORDERED: Neostigmine Methylsulfate 1 MG/ML 5 ML Syringe ONE (08:23)
[2022-12-02] MEDS ORDERED: Succinylcholine 200 MG/10 ML MDV ONE (08:23)
[2022-12-02] MEDS ORDERED: Rocuronium 50 MG/5 ML Vial ONE ×2 (08:23→10:49)
[2022-12-02] MEDS ORDERED: Dexamethasone 4 MG/ML SDV ONE (08:23)
[2022-12-02] MEDS ORDERED: Glycopyrrolate 0.2 MG/ML 5 ML MDV ONE (08:23)
[2022-12-02] MEDS ORDERED: Ondansetron 4 MG/2 ML SDV ONE (08:23)
[2022-12-02] MEDS ORDERED: Propofol 200 MG/20 ML SDV ONE (08:23)
[2022-12-02] MEDS ORDERED: fentaNYL 250 MCG/5 ML SDV ONE ×2 (08:25→10:04)
[2022-12-02] MEDS ORDERED: Sugammadex Sodium 200 MG/2 ML VIAL ONE (11:07)
[2022-12-02] MEDS ORDERED: Ketorolac 30 MG/ML SDV ONE (11:24)
[2022-12-02] MEDS ORDERED: Acetaminophen/oxyCODONE 325-5 MG Tab PO PRN (12:14)
== END 2022-12-02 13:13 | disposition home or self-care (01) ==
LOC: JP.SDS 07:06
PROVIDERS: ATTEND Specialist
DX: S73.101A Unspecified sprain of right hip, initial encounter (principal); M76.31 Iliotibial band syndrome, right leg; G89.29 Other chronic pain; M94.251 Chondromalacia, right hip; M70.61 Trochanteric bursitis, right hip; E66.9 Obesity, unspecified; E03.9 Hypothyroidism, unspecified; F17.200 Nicotine dependence, unspecified, uncomplicated; Z68.36 Body mass index [BMI] 36.0-36.9, adult
CPT/HCPCS: 29862; 29999; 36415; 80053; 85027; A9270; J0330; J1100; J1885; J2405; J2704; J3010; J3490; J7120; J2710

== ENCOUNTER 2023-02-12 09:12 | Day surgery (SDC) | payer SELFPAY ==
[~2023-02-12 09:12] MED LIST changes: -Bupivacaine 0.5% 30 ML SDV ONE; +Bupivacaine 0.5% 50 ML MDV ONE; -Dexamethasone 4 MG/ML SDV ONE; -Glycopyrrolate 0.2 MG/ML 5 ML MDV ONE; -Neostigmine Methylsulfate 1 MG/ML 5 ML Syringe ONE; -Ondansetron 4 MG/2 ML SDV ONE; -Propofol 200 MG/20 ML SDV ONE; -Rocuronium 50 MG/5 ML Vial ONE; -Succinylcholine 200 MG/10 ML MDV ONE; -fentaNYL 250 MCG/5 ML SDV ONE
[2023-02-12] MEDS ORDERED: Ondansetron 4 MG/2 ML SDV ONE (09:29)
[2023-02-12] MEDS ORDERED: Propofol 200 MG/20 ML SDV ONE (09:29)
[2023-02-12] MEDS ORDERED: Rocuronium 50 MG/5 ML Vial ONE (09:29)
[2023-02-12] MEDS ORDERED: fentaNYL 250 MCG/5 ML SDV ONE ×2 (09:29→13:46)
[2023-02-12] MEDS ORDERED: Dexamethasone 4 MG/ML SDV ONE (09:29)
[2023-02-12] MEDS ORDERED: Glycopyrrolate 0.2 MG/ML 5 ML MDV ONE (09:29)
[2023-02-12] MEDS ORDERED: Neostigmine Methylsulfate 10 MG/10 ML MDV ONE (09:29)
[2023-02-12] MEDS ORDERED: Nozin Nasal Sanitizer NASBOTH ONE (10:00)
[2023-02-12 10:09] LABS: HEMATOCRIT 43.4 % (34.3-46.0); HEMOGLOBIN 14.7 g/dL (11.2-15.5); MEAN CORPUSCULAR HEMOGLOBIN 29.5 pg (31.6-35.5); MEAN CORPUSCULAR HGB CONC 33.9 g/dL (31.6-35.5); MEAN CORPUSCULAR VOLUME 87.1 fL (81.4-99.0); RED BLOOD CELL COUNT 4.98 M/uL (3.77-5.24); WHITE BLOOD CELL COUNT,WBC 8.8 K/uL (3.2-11.0)
[2023-02-12 10:24] LABS: CALCIUM 8.4 mg/dL (8.5-10.1); CREATININE 0.9 mg/dL (0.6-1.0); EST CRCL DRUG DOSING (CG) 66.73 mL/min; POTASSIUM,K 4.2 mmol/L (3.6-5.2)
[2023-02-12 10:25] LABS: ANION GAP 12.2 mmol/L (5.0-14.0)
[2023-02-12] MEDS ORDERED: Lactated Ringers 1,000 ML IV SCH (10:30)
[2023-02-12] MEDS ORDERED: ceFAZolin 2 GM in Sodium Chloride 0.9% 50 ML IV ONE (11:00)
[2023-02-12] MEDS ORDERED: Ketorolac 30 MG/ML SDV ONE ×2 (14:20→14:27)
[2023-02-12] MEDS ORDERED: Acetaminophen/HYDROcodone 325-5 MG Tab PO PRN (16:00)
== END 2023-02-12 16:34 | disposition home or self-care (01) ==
LOC: JP.SDS 09:12
PROVIDERS: ATTEND Specialist
DX: S73.102A Unspecified sprain of left hip, initial encounter (principal); M94.252 Chondromalacia, left hip; M70.61 Trochanteric bursitis, right hip; X58.XXXA Exposure to other specified factors, initial encounter
CPT/HCPCS: 29999; 36415; 76000; 80048; 85027; A9270; J1100; J1885; J2405; J2704; J2710; J3010; J3490; J7120

== ENCOUNTER 2023-09-29 14:40 | Emergency (ER) | payer SELFPAY ==
[2023-09-29] MEDS: Cyclobenzaprine 10 MG Tab PO ONE (15:29)
[2023-09-29] MEDS: Ketorolac 30 MG/ML SDV IM ONE (15:29)
[2023-09-29] MEDS: fentaNYL 100 MCG/2 ML SDV IM ONE (15:56)
== END 2023-09-29 17:45 | disposition home or self-care (01) ==
LOC: JP.ED 14:40
DX: M54.41 Lumbago with sciatica, right side (principal); Z76.5 Malingerer [conscious simulation]; E66.9 Obesity, unspecified; Z86.16 Personal history of COVID-19; Z90.710 Acquired absence of both cervix and uterus; Z90.49 Acquired absence of other specified parts of digestive tract; E03.9 Hypothyroidism, unspecified; Z79.899 Other long term (current) drug therapy; Z79.891 Long term (current) use of opiate analgesic
CPT/HCPCS: 72100; 96372; 99283; A9270; J1885; J3010